=== PATIENT | male | born 1970 | race Caucasian/White ===

== ENCOUNTER 2022-08-08 13:58 | Outpatient (CLI) | payer BC, MEDICAID, SELFPAY ==
--- NOTE | 2022-08-08 14:16 | XR_ITS ---
WS: [id number] Exam: XR knee LT 3V* [id number] Date/Time of Exam: 08/08/2022 2:19 PM Reason For Exam: M25.562 - Pain in left knee No fracture or dislocation. The joint compartments are well preserved. No joint effusion. XR/XR knee LT 3V* [id number] IMPRESSION: 1. Normal left knee.
== END 2022-08-08 13:59 | disposition home or self-care (01) ==
LOC: RAD 14:00
PROVIDERS: PCP Registered Nurse; Visit Provider Registered Nurse
DX: M25.562 Pain in left knee (principal); G89.4 Chronic pain syndrome; N48.9 Disorder of penis, unspecified; R33.9 Retention of urine, unspecified
CPT/HCPCS: 73562; 80053; 80061; 81000; 85025; 85651; 86140

== ENCOUNTER → 2022-09-21 10:54 | Outpatient (BNVA) | payer BC, MEDICAID, SELFPAY | PROVIDERS: PCP Registered Nurse; Visit Provider Nurse Practitioner Family | DX: M25.562 Pain in left knee (principal); G89.29 Other chronic pain | CPT/HCPCS: 73560; 73565 ==

== ENCOUNTER 2022-09-21 15:11 | Outpatient (CLI) | payer BC, MEDICAID, SELFPAY | END 2022-09-21 15:12 | disposition home or self-care (01) | LOC: SPT 15:11 | PROVIDERS: PCP Registered Nurse; Visit Provider Nurse Practitioner Family | DX: Z46.89 Encounter for fitting and adjustment of other specified devices (principal); M25.562 Pain in left knee | CPT/HCPCS: 97760; L1812 ==